=== PATIENT | male | born 1990 | race Caucasian/White ===

== ENCOUNTER 2017-11-20 02:28 | Emergency (ER) | payer MEDICARE, MEDICAID ==
--- NOTE | 2017-11-20 02:54 | EDM.PDOC ---
ED HPI GENERAL MEDICAL PROBLEM - General Chief Complaint: ENT Problem Stated Complaint: EYE IRRIATION Time Seen by Provider: 11/20/17 02:30 Source of Information: Reports: Patient History Limitations: Reports: No Limitations - History of Present Illness INITIAL COMMENTS - FREE TEXT/NARRATIVE: Becky comes into [facility] ED with localized sxs of itching, watering, and irritated eyes over the past few days. He is allergic to cats, and reports a recent exposure. He saw an field service rep a couple of days ago and was given a prescription which was inadvertantly left in [place], [place]. 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 There is a PMH of allergic diathesis, but no hx of asthma. - Related Data Allergies Allergy/AdvReac Type Severity Reaction Status Date / Time cat Allergy Other Uncoded 11/20/17 02:39 dog Allergy Other Uncoded 11/20/17 02:39 dust mites Allergy Other Uncoded 11/20/17 02:39 Home Meds: Home Meds Naphazoline HCl/Pheniramine [Allergy Eye Drops] 15 ml EYEBOTH QID PRN 11/20/17 [ History] Past Medical History HEENT History: Reports: Allergic Rhinitis, Other (See Below) (allergic conjunctiviits) ED ROS GENERAL - Review of Systems Review Of Systems: ROS reveals no pertinent complaints other than HPI. ED EXAM GENERAL W FULL EYE - Physical Exam Exam: See Below Exam Limited By: No Limitations General Appearance: Alert, WD/WN, No Apparent Distress, Anxious Eye Exam: Bilateral Eye: Conjunctival Injection, EOMI, PERRL Visual Acuity (R) 20/: 20 Visual Acuity (L) 20/: 20 With Correction: No Eyelids: Bilateral: Normal Appearance Conjunctiva & Sclera: Bilateral: Conjunctival Edema, Injected Cornea Exam: Bilateral: Normal Appearance Extraocular Movements: Bilateral: Intact Pupils: Normal Accommodation Pupillary Size: Bilateral: 4 mm Pupillary Reaction: Bilateral: Brisk Anterior Chamber: Bilateral: Normal Appearance Posterior Chamber: Bilateral: Normal Funduscopic Ears: Normal External Exam Nose: Clear Rhinorrhea Throat/Mouth: Normal Inspection, Normal Lips, Normal Gums, Normal Oropharynx, Normal Voice, No Airway Compromise Neck: Normal Inspection, Supple Respiratory/Chest: No Respiratory Distress, Lungs Clear, Normal Breath Sounds, No Accessory Muscle Use Cardiovascular: Regular Rate, Rhythm, No Murmur Neurological: Alert, Oriented, CN II-XII Intact, Normal Cognition, Normal Gait, No Motor/Sensory Deficits Psychiatric: Normal Affect, Anxious Skin Exam: Warm, Dry, Intact, Normal Color Lymphatic: No Adenopathy Course - Vital Signs Text/Narrative:: Becky remained stable at the [facility] ED. I administered Prednisone 40 mg po. He will take 20 mg daily for an additional 2 days. Last Recorded V/S: Last Vital Signs Temp 36.9 C 11/20/17 02:30 Pulse 89 11/20/17 02:30 Resp 16 11/20/17 02:30 BP 139/90 11/20/17 02:30 Pulse Ox 99 11/20/17 02:30 Departure - Departure Time of Disposition: 02:59 Disposition: Home, Self-Care 01 Condition: Good Clinical Impression: Allergic conjunctivitis and rhinitis Qualifiers: Laterality: bilateral Qualified Code(s): H10.13 - Acute atopic conjunctivitis, bilateral; J30.9 - Allergic rhinitis, unspecified - Discharge Information *PRESCRIPTION DRUG MONITORING PROGRAM REVIEWED*: Not Applicable *COPY OF PRESCRIPTION DRUG MONITORING REPORT IN PATIENT YASSINE: Not Applicable Referrals: Obdulia Mcleod NP [Primary Care Provider] - - Problem List & Annotations (1) Allergic conjunctivitis and rhinitis SNOMED Code(s): 270582010, 363078810 Code(s): H10.10 - ACUTE ATOPIC CONJUNCTIVITIS, UNSPECIFIED EYE; J30.9 - ALLERGIC RHINITIS, UNSPECIFIED Status: Acute Current Visit: Yes Annotation /Comment:: Finish out the Prednisone as directed. Qualifiers: Laterality: bilateral Qualified Code(s): H10.13 - Acute atopic conjunctivitis, bilateral; J30.9 - Allergic rhinitis, unspecified - Problem List Review Problem List Initiated/Reviewed/Updated: Yes - Assessment/Plan Plan: Follow up with PCP if needed.
[2017-11-20] MEDS ORDERED: predniSONE 10 MG Tab PO ONE (20:52)
== END 2017-11-20 02:56 | disposition home or self-care (01) ==
LOC: FB.ED 02:28
DX: H10.13 Acute atopic conjunctivitis, bilateral (principal); J30.9 Allergic rhinitis, unspecified; Z91.09 Other allergy status, other than to drugs and biological substances
CPT/HCPCS: 99282; 99283; A9270